=== PATIENT | female | born 1995 | race Caucasian/White ===

== ENCOUNTER 2017-01-29 21:35 | Emergency (ER) | payer BC ==
[~2017-01-29] VITALS: Ht 162.6 cm; Wt 90.0 kg
[2017-01-29] MEDS ORDERED: ONDANSETRON 2MG/ML, 2ML ONE (22:26)
[2017-01-29] MEDS ORDERED: KETOROLAC 30 MG/1 ML ONE (22:26)
[2017-01-29] MEDS ORDERED: KETOROLAC 30 MG/1 ML IVPush ONE (22:30)
[2017-01-29] MEDS ORDERED: ONDANSETRON 2MG/ML, 2ML IVPush ONE (22:30)
[2017-01-29] MEDS ORDERED: KETOROLAC 30 MG/1 ML IM ONE (22:30)
[2017-01-29] MEDS ORDERED: ONDANSETRON ODT 4 MG PO ONE (22:30)
[2017-01-29 22:59] LABS: ASPARTATE AMINO TRANSFERASE 20 U/L (15-37); BLOOD UREA NITROGEN 10 mg/dL (7-18)
[2017-01-29] MEDS ORDERED: MORPHINE SULFATE 4 MG/ML, 1ML ONE (23:46)
[2017-01-30] MEDS ORDERED: MORPHINE SULFATE 4 MG/ML, 1ML IVPush ONE
[2017-01-30 00:12] VITALS: BP 118/67
== END 2017-01-30 00:14 | disposition home or self-care (01) ==
LOC: ED 23:59
DX: N30.01 Acute cystitis with hematuria (principal); N20.0 Calculus of kidney
CPT/HCPCS: 36415; 74020; 76770; 80053; 81001; 84703; 85025; 96374; 96375; 99285; J1885; J2405